=== PATIENT | male | born 1960 | race Caucasian/White ===

== ENCOUNTER 2024-11-28 12:59 | Emergency (ER) | payer BC, SELFPAY ==
--- NOTE | ~2024-11-28 | XR_ITS ---
Clinical Indication: Cough PA and lateral views of the chest: Comparison: None Findings: The lungs are clear, without evidence of focal consolidation or pleural effusion. Cardiome diastinal silhouette is within normal limits. Bones and soft tissues are unremarkable. Impression: Normal chest. Reviewed, dictated and finalized at location . Impression: Normal chest.
[2024-11-28 12:59] VITALS: BP 129/88; PULSE 75; RESP 16; TEMP 36.4; O2SAT 97
[2024-11-28 13:00] VITALS: O2SAT 97
--- NOTE | 2024-11-28 13:10 | ECG_ITS ---
Test Date: 2024-11-28 13:37:36 Measurements Intervals [place] Rate: 67 P: 32 TX: 181 QRS: -7 QRSD: 96 T: 22 QT: 400 QTc: 422 Interpretive Statements SINUS RHYTHM INCOMPLETE RIGHT BUNDLE BRANCH BLOCK CONSIDER INFERIOR INFARCT, AGE INDETERMINATE ABNORMAL ECG No previous ECG available for comparison Electronically Signed On 11-28-2024 13:58:23 CDT by Ulises Rangel D.O.
--- NOTE | 2024-11-28 13:13 | ED_ITS ---
HPI - URI/Sore Throat General Chief Complaint: Upper Respiratory Infection Stated Complaint: cough Time Seen by Provider: 11/28/24 13:05 Source: patient Mode of arrival: ambulatory Limitations: no limitations History of Present Illness HPI Narrative: 64 year old male presents to the Emergency Department complaining of cough. Onset a week ago. Cough non-productive. No chest pain. Denies sinus congestion or drainage. Was prescribed Tessalon by provider. No fever, nausea or vomiting. Has loose stool chronically from medications he is taking for Multiple Myeloma. MD elicited complaint: cough Onset (ago): week(s) (1) Consistency: intermittent Exacerbating factors: nothing Relieving factors: nothing Treatments prior to arrival: other (Tessalon) Related Data Home Medications ?Medication ?Instructions ?Recorded ?Confirmed ?Last Taken ?Type acyclovir 400 mg tablet 400 mg PO DAILY 09/15/24 09/15/24 Unknown History aspirin 81 mg tablet,delayed 81 mg PO DAILY 09/15/24 09/15/24 Unknown History release (Adult Low Dose Aspirin) benfotiamine 150 mg capsule 300 mg PO QID 09/15/24 09/15/24 Unknown History calcium 600 mg (as 1 cap PO DAILY 09/15/24 09/15/24 Unknown History carbonate)-vitamin D3 5 mcg (200 unit) capsule (Calcium 600 + D(3)) isotretinoin 40 mg capsule 40 mg PO WEEKLY 09/15/24 09/15/24 Unknown History (Accutane) lenalidomide 15 mg capsule 15 mg PO 3XW 09/15/24 09/15/24 Unknown History (Revlimid) methylprednisolone sodium succ 1,000 mg IV MONTHLY 09/15/24 09/15/24 Unknown History 1,000 mg/8 mL intravenous solution omeprazole 20 mg capsule,delayed 20 mg PO DAILY 09/15/24 09/15/24 Unknown History release Allergies Allergy/AdvReac Type Severity Reaction Status Date / Time No Known Allergies Allergy Verified 11/09/24 11:54 Review of Systems 2 Review of Systems: All systems reviewed & are unremarkable except as noted in HPI and below Constitutional: Constitutional: Reports as per HPI, Denies chills and Denies fever(s) Eyes: Eyes: Reports as per HPI and Reports no additional eye complaints ENT: Reports system reviewed and no additional complaints, except as documented and Denies nasal congestion Cardiovascular: Cardiovascular: Reports as per HPI, Reports no additional cardiovascular complaints and Denies chest pain Respiratory: Respiratory: Reports as per HPI, Reports no additional respiratory complaints and Reports cough Gastrointestinal: Gastrointestinal: Reports as per HPI, Reports no additional gastrointestinal complaints, Denies abdominal pain, Reports diarrhea, Denies nausea and Denies vomiting Genitourinary: Genitourinary: Reports no additional male genitourinary complaints Musculoskeletal: Musculoskeletal: Reports no additional musculoskeletal complaints Integumentary/Breasts: Skin/Breast: Reports system reviewed and no additional complaints, except as docu Neurologic: Reports system reviewed and no additional complaints, except as documented Endocrine: Endocrine: Reports no additional endocrine complaints Hematologic/Lymphatic: Hematologic/Lymphatic: Reports no additional hematologic/lymphatic complaints Allergic/Immunologic: Allergic/Immunologic: Reports no additional allergic/immunologic complaints Exam 2 Const: General: healthy appearing and no acute distress Nutritional Appearance: well nourished Orientation/consciousness: patient oriented x3 Limitations: no limitations HENMT: Head: normal to inspection Ears: external ears normal F duane/Nose/Sinus: Normal external nose present Face and sinus: normal facial exam Mouth: Yes Normal oral and palatal mucosa present Teeth and gingiva: dentition normal Throat: posterior oropharynx normal Eyes: Conjunctivae: conjunctivae normal Pupils: Equal, round and reactive pupils present EOM: EOMs intact bilaterally Direct Ophthalmoscopy: no photophobia Neck: Neck: normal visual inspection Other: no JVD Chest: Chest palpation & inspection: normal inspection of the chest Resp: Effort & Inspection: normal respiratory effort Auscultation: d iminished lung sounds Cardio: Rate: regular rate Rhythm: regular rhythm Heart sounds: no murmurs GI: Inspection: non-distended GI Palp: Yes Soft to palpation and No Tenderness to palpation present (GI) Back/Spine/Pelvis: Back: no CVA tenderness Skin: General skin exam: normal color Rashes: no rashes Wounds: no wounds Neuro: General: patient oriented x3, moves all extremities, no meningeal signs, no focal motor deficits and CN's II-XI intact bilaterally Cranial nerves: Yes Nystagmus not present Speech: normal speech Gait exam (Neuro): Normal gait present Extrem: General: normal to inspection and clubbing, cyanosis or edema noted Psych: Mental Status: mental status grossly normal Course Course Emergency Course: 64 y/o male presents to the ED c/o cough for past week. Cough non-productive. No chest pain. No fever, nausea, vomiting. Has diarrhea chronically secondary to medications he takes for Multiple Myeloma. PE: no acute findings CBC: H/H 12.4/37.3, Plt 263; wbc 7.7 CMP: Na 136, K 3.8, Cl 107, CO2 28, Glc 166, BUN 8, Cr 0.74; LFT's normal TNI: 0.028 EKG: NSR, 67, NAC BNP: 192 Covid /Influenza /RSV: negative CXR: NAD *reviewed and discussed results with patient. Discussed further management. There is no evidence of infectious etiology. Will treat for bronchospasm or reactive airway with inhaler and course of steroids to see if any improvement. Patient to f/u PCP. Patient voices understanding and agreement. Rx and Instructions Vital Signs Vital signs: Vital Signs Temperature 36.4 C 11/28/24 12:59 Pulse Rate 75 11/28/24 12:59 Respiratory Rate 16 11/28/24 12:59 Blood Pressure 129/88 11/28/24 12:59 Pulse Oximetry 97 11/28/24 12:59 Oxygen Delivery Room Air 11/28/24 12:59 Temperature 36.4 C 11/28/24 12:59 Pulse Rate 75 11/28/24 12:59 Respiratory Rate 16 11/28/24 12:59 Blood Pressure 129/88 11/28/24 12:59 Pulse Oximetry 97 11/28/24 13:00 Oxygen Delivery Room Air 11/28/24 13:00 MDM - URI/Sore Throat Lab Data 11/28/24 13:20 11/28/24 13:20 Labs: Lab Results 11/28/24 Range/Units 13:20 WBC 7.7 (4.8-10.8) K/mm3 RBC 3.89 L (4.70-6.10) M/mm3 Hgb 12.4 L (14.0-18.0) g/dL Hct 37.3 L (40.0-54.0) % MCV 95.9 (78.0-102.0) fL MCH 31.9 H (27.0-31.0) pg MCHC 33.2 (32-36) g/dL RDW 13.7 (11.6-14.4) % Plt Count 263 (150-420) K/mm3 MPV 9.1 (8.7-11.0) fl Immature Gran % (Auto) Not Reportable Neut % (Auto) Not Reportable Lymph % (Auto) Not Reportable [place] % (Auto) Not Reportable Eos % (Auto) Not Reportable Baso % (Auto) Not Reportable Lymph # (Auto) Not Reportable [place] # (Auto) Not Reportable Eos # (Auto) Not Reportable Baso # (Auto) Not Reportable Abs Immat Gran (auto) Not Reportable Absolute Neuts (auto) Not Reportable Absolute Nucleated RBC Not Reportable Total Counted 100 Neutrophils % (Manual) 54 (46-73) % Band Neutrophils % 0 (0-6) % Lymphocytes % (Manual) 20 (18-44) % Monocytes % (Manual) 21 H (3-9) % Eosinophils % (Manual) 2 (1-6) % Basophils % (Manual) 3 H (0-1) % Nucleated RBC % Not Reportable Abs Neuts (Manual) 4.15 (1.3-6.7) K/mm3 Abs Lymphs (Manual) 1.54 (1.1-4.5) K/mm3 Abs Monocytes (Manual) 1.61 H (0.1-0.90) K/mm3 Absolute Eos (Manual) 0.15 (0.02-0.50) K/mm3 Abs Basophils (Manual) 0.23 H (0-0.1) K/mm3 Platelet Estimate Adequate (Adequate) Schistocytes None seen Sodium 136 L (137-145) mmol/L Potassium 3.8 (3.4-5.0) mmol/L Chloride 107 (98-107) mmol/L Carbon Dioxide 28 (22-30) mmol/L Anion Gap 1 L (4-12) mmol/L BUN 8 L (9-20) mg/dL Creatinine 0.74 (0.7-1.3) mg/dL Estim Creat Clear Calc 107 ml/min Estimated GFR > 60 (59 - ) Glucose 166 H (65-110) mg/dL Calculated Osmolality 284 L (285-295) mOsm/kg Calcium 8.5 (8.4-10.2) mg/dL Total Bilirubin 1.2 (0.2-1.3) mg/dL AST 36 (17-59) U/L ALT 42 (6-50) U/L Alkaline Phosphatase 65 (38-126) U/L Troponin I 0.028 (0.000-0.034) ng/mL NT-Pro-B Natriuret Pep 192 H (19.9-100) pg/mL Total Protein 6.2 L (6.3-8.2) g/dL Albumin 3.6 (3.5-5.1) g/dL Influenza A (RT-PCR) Negative (Negative) Influenza B (RT-PCR) Negative (Negative) RSV (RT-PCR) Negative (Negative) SARS-CoV-2 RNA (RT-PCR) Negative (Negative) Discharge Plan Discharge Clinical Impression: Cough Qualifiers: Cough type: acute Qualified Code(s): R05.1 - Acute cough Mild reactive airways disease Qualifiers: Asthma persistence: unspecified Qualified Code(s): J45.909 - Unspecified asthma, uncomplicated Patient Disposition: Home Condition: Stable Instructions: Reactive Airways Disease (ED) Additional Instructions: Take medications as prescribed Continue home medications Follow up Primary Care Physician Return as needed Patient Language: Icelandic Prescriptions: New ProAir RespiClick 90 mcg/actuation aerosol powdr breath activated 2 inh inhalation Q4H PRN (Reason: cough) Qty: 1 0RF prednisone 10 mg tablet 10 mg PO DIRECTED Qty: 21 0RF Rx Instructions: see taper instructions Day 1: 6 tabs, Day 2: 5 tabs, Day 3: 4 tabs, Day 4: 3 tabs, Day 5: 2 tabs, Day 6: 1 tab No Action lenalidomide [Revlimid] 15 mg capsule 15 mg PO 3XW acyclovir 400 mg tablet 400 mg PO DAILY Patient Comments: .. aspirin [Adult Low Dose Aspirin] 81 mg tablet,delayed release (DR/EC) 81 mg PO DAILY Calcium 600 + D(3) 600 mg-5 mcg (200 unit) capsule 1 cap PO DAILY benfotiamine 150 mg capsule 300 mg PO QID omeprazole 20 mg capsule,delayed release(DR/EC) 20 mg PO DAILY isotretinoin [Accutane] 40 mg capsule 40 mg PO WEEKLY Rx Instructions: must administer with a meal/food methylprednisolone sodium succ 1,000 mg/8 mL recon soln 1,000 mg IV MONTHLY Follow-up/Referrals: UNKNOWN,DOCTOR [Non-Staff] - Time of Disposition: 14:23
[2024-11-28 13:25] LABS: Hematocrit 37.3 % (40.0-54.0); Hemoglobin 12.4 g/dL (14.0-18.0); Mean Corpuscular HGB Conc 33.2 g/dL (32-36); Mean Corpuscular Hemoglobin 31.9 pg (27.0-31.0); Mean Corpuscular Volume 95.9 fL (78.0-102.0); Mean Platelet Volume 9.1 fl (8.7-11.0); Platelet Count Result 263 K/mm3 (150-420); Red Blood Count 3.89 M/mm3 (4.70-6.10); Red Cell Distribution Width 13.7 % (11.6-14.4); White Blood Count 7.7 K/mm3 (4.8-10.8)
[2024-11-28 13:42] LABS: Alanine Aminotransferase 42 U/L (6-50); Albumin Level 3.6 g/dL (3.5-5.1); Alkaline Phosphatase 65 U/L (38-126); Anion Gap 1 mmol/L (4-12); Aspartate Amino Transferase 36 U/L (17-59); Bilirubin,Total 1.2 mg/dL (0.2-1.3); Blood Urea Nitrogen 8 mg/dL (9-20); Calcium 8.5 mg/dL (8.4-10.2); Carbon Dioxide 28 mmol/L (22-30); Chloride 107 mmol/L (98-107); Estimated CRCL calculation 107 ml/min; Estimated Glomerular Filt Rate > 60; Glucose 166 mg/dL (65-110); Osmolality Calculated 284 mOsm/kg (285-295); Potassium 3.8 mmol/L (3.4-5.0); Sodium 136 mmol/L (137-145); Total Protein 6.2 g/dL (6.3-8.2)
[2024-11-28 13:45] LABS: Band Neutrophils Percent 0 % (0-6); Neutrophils Absolute Manual 4.15 K/mm3 (1.3-6.7); Neutrophils Percent Manual 54 % (46-73); Total Cells Counted 100
[2024-11-28 13:46] LABS: Basophils Absolute Manual 0.23 K/mm3 (0-0.1); Basophils Percent Manual 3 % (0-1); Eosinophils Absolute Manual 0.15 K/mm3 (0.02-0.50); Eosinophils Percent Manual 2 % (1-6); Lymphocytes Absolute Manual 1.54 K/mm3 (1.1-4.5); Lymphocytes Percent Manual 20 % (18-44); Monocytes Absolute Manual 1.61 K/mm3 (0.1-0.90); Monocytes Percent Manual 21 % (3-9); Platelet Estimate Adequate (Adequate); Schistocytes None Seen
[2024-11-28 13:53] LABS: NT Pro B Type Natriuretic Pept 192 pg/mL (19.9-100); Troponin I 0.028 ng/mL (0.000-0.034)
[2024-11-28 14:00] LABS: Influenza A QL RT-PCR Negative (Negative); Influenza B QL RT-PCR Negative (Negative); RSV RNA, RT-PCR Negative (Negative); SARS-CoV-2 RNA PCR Negative (Negative)
--- OUTSIDE RECORDS SUMMARY | 2024-11-28 14:19 | XMS_ITS | Clinical Summary ---
Author Organization [facility] Address [address] [place] [address] Care Team Providers Care Acute Care Physician Name Role Phone Unavailable Primary Care Provider Unavailabl e Allergies No known active allergies Medications acyclovir (ZOVIRAX) 400 mg tablet Take 1 tablet by mouth daily. 90 Tablet 3 5 11:59 AM CDT 11/19/19 24 Active ISOtretinoin (ACCUTANE) 40 mg capsule Take 1 Capsule (40 mg) by mouth 2 times daily. 60 Capsule 01/01/20 24 Active sodium chloride 0.9 % Parenteral Solution 1,000 mL with methylPREDNISolone sodium succinate 2 gram Recon Soln 124.2 mg/kg Inject 124.2 mg/kg by intravenous injection continuously. Active lenalidomide (Revlimid) 15 mg capsule Take 15 mg by mouth daily. Active aspirin (ECOTRIN EC) 81 mg Tablet, Delayed Release (E.C.) Take 81 mg by mouth daily. Active calcium-vitamin D3 (CALTRATE 600+D) 600 mg-5 mcg (200 unit) Tablet Take 1 Tablet by mouth daily. Active BENFOTIAMINE ORAL Take 300 mg by mouth daily. Active omeprazole (PriLOSEC) 20 mg Capsule, Delayed Release(E.C.) Take 20 mg by mouth daily. Active Ciclopirox 0.77 % Suspension Apply to affected area(s) on toenails daily at bedtime as directed. 60 mL 2 5 2:02 PM CDT 11/25/19 25 Active benzonatate (TESSALON) 200 mg capsule Take 1 Capsule (200 mg) by mouth 3 times daily as needed for cough. 60 Capsule 3 5 2:02 PM CDT 11/25/19 25 Active Active Problems No known active problems Encounters Date Type Department Care Team Description 11/21/2024 Orders Only [facility] Oncology and Hematology - Eric [address] Abdoulaye Watson MD Multiple myeloma in remission ([facility]/HCC) 11/07/2024 Orders Only [facility]ematology - Eric Nain [address] Abdoulaye Watson MD Multiple myeloma in remission ([facility]/HCC) 10/24/2024 Orders Only [facility] Hematology - Eric Nain [address] Abdoulaye Watson MD Multiple myeloma in remission ([facility]/HCC) 10/13/2024 Orders Only [facility] Hematology - Eric Nain [address] Abdoulaye Watson MD 10/12/2024 Orders Only [facility]ematology - Eric Nain [address] Abdoulaye Watson MD Multiple myeloma in remission ([facility]/HCC) (Primary Dx) 10/10/2024 Orders Only [facility] Hematology - Eric Nain [address] Abdoulaye Watson MD Multiple myeloma in remission ([facility]) 09/29/2024 9:45 AM CDT Office Visit [facility]ematology - Eric Nain [address] Abdoulaye Watson MD Multiple myeloma in remission ([facility]/HCC) (Primary Dx) 09/20/2024 Orders Only [facility]cology and Hematology - Eric [address]ain [address] [place] [id number] Abdoulaye Watson MD 09/15/2024 Abstract [facility]ematology - Eric [address] [place] [id number] Abdoulaye Watson MD 09/12/2024 Orders Only [facility] Hematology - [address] [place] [address] Abdoulaye Watson MD Multiple myeloma in remission (CMS/HCC) from Last 3 Months Family History Medical History Relation Name Comments Diabetes Type 2 Brother 1 No Known Problems Brother 2 No Known Problems Brother 3 Prostate Cancer Father No Known Problems Mother Relation Name Status Comments Brother 1 Alive Brother 2 Alive Brother 3 Alive Father Mother Alive Social History Tobacco Use Types Packs/Day Years Used Date Smoking Tobacco: Never Smokeless Tobacco: Never Tobacco Cessation:Counseling Given: Not Answered Alcohol Use Standard Drinks/Week Comments Not Currently 0 (1 standard drink = 0.6 oz pur e alcohol) Occasionally Sex and Gender Information Value Date Recorded Sex Assigned at Not on file Legal Sex Male 10:38 AM CDT Gender Identity Not on file Sexual Orientation Not on file Last Filed Vital Signs Vital Sign Reading Time Taken Comments Blood Pressure 117/76 09/29/2024 9:35 AM CDT Pulse 76 09/29/2024 9:35 AM CDT Temperature 36 C (96.8 F) 09/29/2024 9:35 AM CDT Respiratory Rate 16 09/29/2024 9:35 AM CDT Oxygen Saturation 98% 09/29/2024 9:35 AM CDT Inhaled Oxygen Concentration - - Weight 98.1 kg (216 lb 3.2 oz) 09/29/2024 9:35 A M CDT Height 182.9 cm (6') 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 Body Mass Index 29.32 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 Plan of Treatment Upcoming Encounters Date Type Department Care Team (Late st Contact Info) Description 12/05/2024 Orders Only [facility] Oncology and Hematology - [address] [place] [address] Abdoulaye Watson MD [address] [facility] [address] [place] [address] Multiple myeloma in remission (CMS/HCC) 12/29/2024 1:00 PM CDT Office Visit [facility] Hematology - Eric [address] [place] [address] Abdoulaye Watson MD [address] [facility] [address] [place] [address] Health Maintenance Due Date Last Done Comments DIABETES MICROALBUMIN ANNUAL SCREEN 01/18/1978 LDL CHOLESTEROL ANNUAL 01/18/1978 ZOSTER VACCINE (1 of 2) 01/18/1979 COLORECTAL SCREENING 01/18/2005 Colorectal Cancer Screening 01/18/2005 FIT-DNA Q 3 years 01/18/2005 FIT/FOBT Q 1 year 01/18/2005 Flex Sig/CT Colonography Q 5 years 01/18/2005 RSV VACCINE (60+ or ) (1 - Risk 60-74 years 1-dose series) 2020 DIABETES ANNUAL RETINAL EXAM 11/12/2021 11/12/2020 DIABETES HBA1C Q 6 MONTHS 08/15/2022 02/12/2022 DIABETES ANNUAL FOOT EXAM 08/15/2023 08/15/2022 INFLUENZA VACCINE (#1) 2024 DTAP/TDAP/TD VACCINES (2 - Td or Tdap) 01/23/2031 Procedures Procedure Name Priority Date/Time Associated Diagnosis Comments COMPREHENSIVE METABOLIC PANEL Routine 10/12/2024 11:37 AM CDT KAPPA/LAMBDA LIGHT CHAINS Routine 2024 7:57 AM CDT from Last 3 Months Results * COMPREHENSIVE METABOLIC PANEL (10/12/2024 11:37 AM CDT) Blood us Abdoulaye Watson MD CHEMISTRY ORDERABLES Final Resu lt * KAPPA/LAMBDA, FREE LIGHT CHAINS (09/15/2024 7:57 AM CDT) Blood Abdoulaye Watson MD CHEMISTRY ORDERABLES Final Resu lt from Last 3 Months Insurance RX [employer] Commercial BCBS BLUE ACCESS/TRUE BLUE PPO
[2024-11-28 14:41] VITALS: BP 103/69; PULSE 74; RESP 18; O2SAT 97
--- OUTSIDE RECORDS SUMMARY | 2024-11-28 14:45 | XMS_ITS | Clinical Summary ---
Author Organization [facility] Address [address] [place] [address] Care Team Providers Care Sole Filler Name Role Phone Unavailable Primary Care Provider [...] Department Care Team Description 11/21/2024 Orders Only [facility] Oncology and Hematology - Eric Nain [address] Abdoulaye Watson MD Multiple myeloma in remission ([facility]/HCC) 11/07/2024 Orders Only [facility] Oncology and Hematology - Eric Nain [address] Abdoulaye Watson MD Multiple myeloma in remission ([facility]/HCC) 10/24/2024 Orders Only [facility] Oncology and Hematology - Eric Nain [address] Abdoulaye Watson MD Multiple myeloma in remission ([facility]/HCC) 10/13/2024 Orders Only [facility] Oncology and Hematology - Eric Nain [address] Abdoulaye Watson MD 10/12/2024 Orders Only [facility] Oncology and Hematology - Eric Nain [address] Abdoulaye Watson MD Multiple myeloma in remission ([facility]/HCC) (Primary Dx) 10/10/2024 Orders Only [facility] Oncology and Hematology - Eric Nain [address] Abdoulaye Watson MD Multiple myeloma in remission ([facility]) 09/29/2024 9:45 AM CDT Office Visit [facility] Oncology and Hematology - Erci Nain [address] Abdoulaye Watson MD Multiple myeloma in remission ([facility]/HCC) (Primary Dx) 09/20/2024 Orders Only [facility] Oncology and Hematology - Eric [address]ain [address] [place] [id number] Abdoulaye Watson MD 09/15/2024 Abstract [facility]cology and Hematology - Eric [address] [place] [phone] Abdoulaye Watson MD 09/12/2024 Orders Only [facility] Oncology and Hematology - [address] [place] [address] Abdoulaye Watson MD Multiple myeloma [...] Height 182.9 cm (6') 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/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 Body Mass Index 29.32 07/18/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 Plan of Treatment Upcoming Encounters Date Type Department Care Team (Late st Contact Info) Description 12/05/2024 Orders Only [facility] Oncology and Hematology - [address] [place] [address] Abdoulaye Watson MD [address] [facility] [employer] [address] [place] [address] Multiple myeloma in remission (CMS/HCC) 12/29/2024 1:00 PM CDT Office Visit [facility] Oncology and Hematology - Eric [address] [facility] [address] [place] [address] Abdoulaye Watson MD [address] [facility] [address] [place] [address] Health Maintenance Due Date Last [...]
== END 2024-11-28 14:41 | disposition home or self-care (01) ==
PROVIDERS: Emergency Provider Emergency Medicine; PCP Internal Medicine
DX: J45.909 Unspecified asthma, uncomplicated (principal); R05.1 Acute cough; Z20.822 Contact with and (suspected) exposure to COVID-19
CPT/HCPCS: 36415; 71046; 80053; 83880; 84484; 85025; 87637; 93005; 99284

== ENCOUNTER 2024-12-12 15:36 | Emergency (ER) | payer BC, SELFPAY ==
--- NOTE | ~2024-12-12 | XR_ITS ---
XR chest 2V Ordering provider: SHRUTI Morris History: 64 years Male with . cough x1 month. Crackle RUL nonsmoker hx pneumonia . Comparison: July 31, 2024 FINDINGS: MEDIASTINUM: The cardiac silhouette is not enlarged. LUNGS: No infiltrates, effusions or pneumothorax. OTHER: No free air under the diaphragm. Degenerative changes of the spine. IMPRESSION: No acute cardiopulmonary pathology. Reviewed, dictated and finalized at location A.
[2024-12-12 15:44] VITALS: BP 109/63; PULSE 74; RESP 16; TEMP 36.2; O2SAT 99
--- NOTE | 2024-12-12 15:56 | ED_ITS ---
HPI - URI/Sore Throat General Chief Complaint: Upper Respiratory Infection Stated Complaint: Cough Time Seen by Provider: 12/12/24 15:49 Source: patient, RN notes reviewed and old records reviewed ([facility]) Mode of arrival: ambulatory Limitations: no limitations History of Present Illness HPI Narrative: Patient presents today with a 4 week history of cough. Cough was initially dry but is now productive over the past week to include congestion postnasal drainage. Denies pain, fever. Reports some intermittent shortness of breath when lying flat, but likely due to increased postnasal drainage. Patient was seen on 11/28/2024 in the ER at [facility], where he received labs and a chest xray, which were grossly unremarkable. He was discharged home with prescription for an albuterol inhaler and prednisone. He has finished the prednisone and use albuterol inhaler without relief. He has not tried any additional ceut-orr-fejyptx medications for his symptoms. History of multiple myeloma for which he is undergoing treatment. Does not currently have a PCP. Related Data Home Medications ?Medication ?Instructions ?Recorded ?Confirmed ?Last Taken ?Type acyclovir 400 mg tablet 400 mg PO DAILY 09/15/24 09/15/24 Unknown History aspirin 81 mg tablet,delayed 81 mg PO DAILY 09/15/24 09/15/24 Unknown History release (Adult Low Dose Aspirin) benfotiamine 150 mg capsule 300 mg PO QID 09/15/24 09/15/24 Unknown History calcium 600 mg (as 1 cap PO DAILY 09/15/24 09/15/24 Unknown History carbonate)-vitamin D3 5 mcg (200 unit) capsule (Calcium 600 + D(3)) isotretinoin 40 mg capsule 40 mg PO WEEKLY 09/15/24 09/15/24 Unknown History (Accutane) lenalidomide 15 mg capsule 15 mg PO 3XW 09/15/24 09/15/24 Unknown History (Revlimid) methylprednisolone sodium succ 1,000 mg IV MONTHLY 09/15/24 09/15/24 Unknown History 1,000 mg/8 mL intravenous solution omeprazole 20 mg capsule,delayed 20 mg PO DAILY 09/15/24 09/15/24 Unknown History release benzonatate 200 mg capsule mg PO 12/12/24 Unknown History Allergies Allergy/AdvReac Type Severity Reaction Status Date / Time No Known Allergies Allergy Verified 12/12/24 15:38 Review of Systems Review of Systems: CONSTITUTIONAL: Denies body aches, fever, chills, or sweats. EYES: Denies visual changes, redness, or discharge. ENT: Denies rhinorrhea, sore throat, or otalgia.+ congestion, postnasal drip CARDIOVASCULAR: Denies chest pain, palpitations, or edema. RESPIRATORY: + cough GASTROINTESTINAL: Denies abdominal pain, nausea, vomiting, or diarrhea. GENITOURINARY: Denies dysuria or hematuria. SKIN: Denies rash, itching, or wounds. MUSCULOSKELETAL: Denies back pain, joint pain, or myalgia. NEUROLOGIC: Denies headache, numbness, tingling, or weakness. PSYCH: Denies depression or anxiety. PMFSH Comments At time of signature, I have reviewed and agree with nursing past medical, surgical, social and family history unless otherwise noted. Please see nursing chart for further information. There is no relevant family history pertinent to the presenting complaint Exam Narrative: GENERAL: Well-appearing, well-nourished, and in no acute distress. HEAD: Normocephalic, atraumatic. EYES: EOMI. No redness or drainage. Conjunctivae normal. ENT: Mucous membranes pink and moist. Nares mildly congested with rhinorrhea. NECK: Normal AROM. CHEST: No respiratory distress. Slight crackling in the right upper lobe, otherwise clear HEART: Regular rate and rhythm. No murmur appreciated. EXTREMITIES: Normal range of motion. No edema. SKIN: Warm, dry, no rash. Capillary refill normal. Normal skin turgor. NEURO: No focal deficits. Alert and oriented x3. Gait steady. PSYCH: Normal affect. No signs of depression or anxiety. Course Course Level of Care: Express Care Visit Vital Signs Vital signs: Vital Signs Temperature 97.1 F L 12/12/24 15:44 Pulse Rate 74 12/12/24 15:44 Respiratory Rate 16 12/12/24 15:44 Blood Pressure 109/63 12/12/24 15:44 Pulse Oximetry 99 12/12/24 15:44 Oxygen Delivery Room Air 12/12/24 15:44 Temperature 97.1 F L 12/12/24 15:44 Pulse Rate 74 12/12/24 15:44 Respiratory Rate 16 12/12/24 15:44 Blood Pressure 109/63 12/12/24 15:44 Pulse Oximetry 99 12/12/24 15:44 Oxygen Delivery Room Air 12/12/24 15:44 Reviewed MDM - URI/Sore Throat MDM Narrative Medical decision making narrative: Chest x-ray negative. Prescription for Augmentin sent to pharmacy for possible bacterial component due to persistence and current nasal symptoms. Patient declines prescription for cough medicine. Anticipatory guidance given. Differential Diagnosis Differential diagnosis: Likely upper respiratory infection, sinusitis, viral infection, bronchitis and other (Pneumonia) Imaging Data Radiologist's impression: ITS Impressions Chest X-Ray 12/12/24 16:12 IMPRESSION: No acute cardiopulmonary pathology. Critical Care Time Critical Care Time Critical Care Time: No Discharge Plan Discharge Clinical Impression: Bronchitis Upper respiratory infection Qualifiers: URI type: unspecified URI Qualified Code(s): J06.9 - Acute upper respiratory infection, unspecified Patient Disposition: Home Condition: Stable Instructions: Antibiotic Form, Upper Respiratory Infection (DC) Additional Instructions: Your chest x-ray is negative for pneumonia. Please take the Augmentin as prescribed until gone. Taking xfsy-ehe-iqmfotv cough medicine if needed such as Mucinex. Follow-up with a PCP if your symptoms persist. If you do not have a PCP in need help finding one, please call the [facility] physician liaison at [phone]. Patient Language: Italian Prescriptions: New amoxicillin-pot clavulanate 875-125 mg tablet 1 tablet PO Q12H 7 Days Qty: 14 0RF No Action ProAir RespiClick 90 mcg/actuation aerosol powdr breath activated 2 inh inhalation Q4H PRN (Reason: cough) Qty: 1 0RF prednisone 10 mg tablet 10 mg PO DIRECTED Qty: 21 0RF Rx Instructions: see taper instructions Day 1: 6 tabs, Day 2: 5 tabs, Day 3: 4 tabs, Day 4: 3 tabs, Day 5: 2 tabs, Day 6: 1 tab benzonatate 200 mg capsule PO lenalidomide [Revlimid] 15 mg capsule 15 mg PO 3XW acyclovir 400 mg tablet 400 mg PO DAILY Patient Comments: .. aspirin [Adult Low Dose Aspirin] 81 mg tablet,delayed release (DR/EC) 81 mg PO DAILY Calcium 600 + D(3) 600 mg-5 mcg (200 unit) capsule 1 cap PO DAILY benfotiamine 150 mg capsule 300 mg PO QID omeprazole 20 mg capsule,delayed release(DR/EC) 20 mg PO DAILY isotretinoin [Accutane] 40 mg capsule 40 mg PO WEEKLY Rx Instructions: must administer with a meal/food methylprednisolone sodium succ 1,000 mg/8 mL recon soln 1,000 mg IV MONTHLY Follow-up/Referrals: PHYSICIAN,COMMISSARY MANAGER [Primary Care Provider] - Time of Disposition: 16:24
== END 2024-12-12 16:25 | disposition home or self-care (01) ==
PROVIDERS: Emergency Provider Nurse Practitioner
DX: J40 Bronchitis, not specified as acute or chronic (principal); J06.9 Acute upper respiratory infection, unspecified; C90.00 Multiple myeloma not having achieved remission; K21.9 Gastro-esophageal reflux disease without esophagitis; Z96.651 Presence of right artificial knee joint
CPT/HCPCS: 71046; 99213; G0463

== ENCOUNTER 2024-12-19 12:41 | Outpatient (CLI) | payer BC, SELFPAY ==
--- OUTSIDE RECORDS SUMMARY | 2024-12-19 12:45 | XMS_ITS | Encounter Summary ---
Author Organization [facility] [employer] Address [address] [place] [address] Care Team Providers Care Planning Specialist Name Role Phone Unavailable Primary Care Provider Unavailabl e Encounter Details Date Type Department Care Team ([facility] Contact Info) Description 12/19/2024 Orders Only [facility] Oncology and Hematology - [address] [place] [address] Abdoulaye Watson MD [facility] [address] [place] [phone] Multiple myeloma in remission ([facility]) Social History Tobacco Use Types Packs/Day Years Used Date Smoking Tobacco: Never Smokeless Tobacco: Never Alcohol Use Standard Drinks/Week Comments Not Currently 0 (1 standard drink = 0.6 oz pur e alcohol) Occasionally Sex and Gender Information Value Date Recorded Sex Assigned at Not on file Legal Sex Male 10:38 AM CDT Gender Identity Not on file Sexual Orientation Not on file documented as of this encounter Plan of Treatment Upcoming Encounters Date Type Department Care Team ([facility] Contact Info) Description 12/29/2024 1:00 PM CDT Office Visit [facility] Oncology and Hematology - [address] [place] [address] Abdoulaye Watson MD [facility] [address] [place] [address] 01/02/2025 Orders Only [facility] Oncology and Hematology - [address] [place] [address] Abdoulaye Watson MD [address] [place] [address] Multiple myeloma in remission (CMS/HCC) documented as of this encounter Visit Diagnoses Diagnosis Multiple myeloma in remission (CMS/HCC) Multiple myeloma in remission Multiple myeloma in remission (CMS/HCC) Multiple myeloma in remission documented in this encounter
--- OUTSIDE RECORDS SUMMARY | 2024-12-19 12:45 | XMS_ITS | Clinical Summary ---
Author Organization [employer] [facility] Address [address] [place] [address] Care Team Providers Care Clinical Research Specialist Name Role Phone Unavailable Primary Care [...] 5 2:02 PM CDT 11/25/19 25 Active albuterol sulfate (ProAir RespiClick) 90 mcg/actuation metered powder inhaler Take 2 Puffs by inhalation every 4 hours as needed for cough. 1 Each 5 6:14 PM CDT 11/29/19 Active amoxicillin-clavulana te (AUGMENTIN) 875-125 mg tablet Take 1 Tablet by mouth every 12 hours for 7 days. 14 Tablet 5 5:02 PM CDT 12/13/19 25 2024 Active predniSONE (DELTASONE) 10 mg tablet Take 6 Tablets (60 mg) by mouth daily for 1 day, THEN 5 Tablets (50 mg) daily for 1 day, THEN 4 Tablets (40 mg) daily for 1 day, THEN 3 Tablets (30 mg) daily for 1 day, THEN 2 Tablets (20 mg) daily for 1 day, THEN 1 Tablet (10 mg) daily for 1 day. 21 Tablet 5 6:14 PM CDT 11/29/19 25 2024 Active Problems No known active problems Encounters Date Type Department Care Team Description 12/19/2024 Orders Only [facility] Oncology and Hematology - [address] [place] [address] Abdoulaye Watson MD Multiple myeloma in remission ([facility]) 12/05/2024 Orders Only [facility] Oncology and Hematology - [address] [place] [address] Abdoulaye Watson MD Multiple myeloma in remission ([facility]) 11/21/2024 Orders Only [facility] Oncology and Hematology - [address] [place] [address] Abdoulaye Watson MD Multiple myeloma in remission ([facility]) 11/07/2024 Orders Only [facility] Oncology and Hematology - [address] [place] [address] Abdoulaye Watson MD Multiple myeloma in remission ([facility]) 10/24/2024 Orders Only [facility] Oncology and Hematology - [address] [place] [address] Abdoulaye Watson MD Multiple myeloma in remission ([facility]) 10/13/2024 Orders Only [facility] Oncology and Hematology - Eric [address] [place] [address] Abdoulaye Watson MD 10/12/2024 Orders Only [facility] Oncology and Hematology - [address] [place] [address] Abduolaye Watson MD Multiple myeloma in remission ([facility]) (Primary Dx) 10/10/2024 Orders Only [facility] Oncology and Hematology - Eric [address] [place] [address] Abdoulaye Watson MD Multiple myeloma in remission ([facility]) 09/29/2024 9:45 AM CDT Office Visit [facility] Oncology and Hematology - [address] [place] [address] Abdoulaye Watson MD Multiple myeloma in remission ([facility]) (Primary Dx) 09/20/2024 Orders Only [facility] Oncology and Hematology - [address] [place] [address] Abdoulaye Watson MD from Last 3 Months Family History Medical [...] Height 182.9 cm (6') 07/18/2024 1:40 PM 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 [address] [place] [phone] Abdoulaye Watson MD [address] [place] [phone] Multiple myeloma in remission ([facility]/HCC) Health Maintenance Due Date Last Done Comments [...] METABOLIC PANEL Routine 10/12/2024 11:37 AM CDT from Last 3 Months Results * COMPREHENSIVE METABOLIC PANEL (10/12/2024 11:37 AM CDT) Blood Abdoulaye Watson MD CHEMISTRY ORDERABLES Final Resu lt from Last 3 Months Insurance RX [employer] Commercial [employer]BS BLUE ACCESS/TRUE BLUE PPO
[2024-12-19 13:00] LABS: Mean Corpuscular HGB Conc 32.4 g/dL (32-36); Mean Corpuscular Hemoglobin 31.1 pg (27.0-31.0); Mean Corpuscular Volume 95.9 fL (78.0-102.0); Mean Platelet Volume 8.7 fl (8.7-11.0); Platelet Count Result 266 K/mm3 (150-420); Red Blood Count 3.86 M/mm3 (4.70-6.10); Red Cell Distribution Width 14.2 % (11.6-14.4)
[2024-12-19 13:28] LABS: Strep Group A RT-PCR NOT DETECTED (Negative)
[2024-12-19 13:40] LABS: Influenza A QL RT-PCR Negative (Negative); Influenza B QL RT-PCR Negative (Negative); RSV RNA, RT-PCR Negative (Negative); SARS-CoV-2 RNA PCR Negative (Negative)
[2024-12-19 13:59] LABS: Band Neutrophils Percent 0 % (0-6); Eosinophils Percent Manual 0 % (1-6); Lymphocytes Absolute Manual 2.22 K/mm3 (1.1-4.5); Lymphocytes Percent Manual 37 % (18-44); Monocytes Absolute Manual 0.66 K/mm3 (0.1-0.90); Monocytes Percent Manual 11 % (3-9); Neutrophils Absolute Manual 3.12 K/mm3 (1.3-6.7); Neutrophils Percent Manual 52 % (46-73); Platelet Estimate Adequate (Adequate); Total Cells Counted 100
[2024-12-19 14:00] LABS: Alanine Aminotransferase 51 U/L (6-50); Albumin Level 3.1 g/dL (3.5-5.1); Alkaline Phosphatase 66 U/L (38-126); Anion Gap 2 mmol/L (4-12); Aspartate Amino Transferase 43 U/L (17-59); Bilirubin,Total 0.9 mg/dL (0.2-1.3); Blood Urea Nitrogen 7 mg/dL (9-20); Calcium 8.2 mg/dL (8.4-10.2); Carbon Dioxide 28 mmol/L (22-30); Chloride 107 mmol/L (98-107); Estimated Glomerular Filt Rate > 60; Glucose 147 mg/dL (65-110); Osmolality Calculated 285 mOsm/kg (285-295); Potassium 3.5 mmol/L (3.4-5.0); Sodium 137 mmol/L (137-145); Total Protein 5.4 g/dL (6.3-8.2)
[2024-12-22 19:54] LABS: Adenovirus DNA Not Detected (Not Detected); Chlamydophila pneumoniae Not Detected (Not Detected); Coronavirus 229E Not Detected (Not Detected); Coronavirus HKU1 Not Detected (Not Detected); Coronavirus NL63 Not Detected (Not Detected); Coronavirus OC43 Not Detected (Not Detected); Human Metapneumovirus Not Detected (Not Detected); Human Parainfluenza Virus 1 Not Detected (Not Detected); Human Parainfluenza Virus 2 Not Detected (Not Detected); Human Parainfluenza Virus 3 Not Detected (Not Detected); Human Parainfluenza Virus 4 Not Detected (Not Detected); Human RSV B Not Detected (Not Detected); Influenza A Not Detected (Not Detected); Influenza B Not Detected (Not Detected); Mycoplasma pneumoniae Not Detected (Not Detected); Rhinovirus/Enterovirus Not Detected (Not Detected)
== END 2024-12-19 12:42 | disposition home or self-care (01) ==
LOC: CHSLAB 12:42
PROVIDERS: PCP Nurse Practitioner Family; Visit Provider Nurse Practitioner Family
DX: J06.9 Acute upper respiratory infection, unspecified (principal); R05.3 Chronic cough
CPT/HCPCS: 36415; 80053; 84443; 85025; 87633; 87637; 87651